=== PATIENT | male | born 1990 | race Caucasian/White ===

== ENCOUNTER 2022-03-22 17:08 | Emergency (ER) | payer SELFPAY ==
[~2022-03-22] VITALS: Ht 182.9 cm; Wt 106.0 kg
[2022-03-22] MEDS ORDERED: SODIUM CHLORIDE 0.9% 1,000 ML IV ONE (18:00)
[2022-03-22] MEDS ORDERED: LORAZEPAM 2MG/ML CPJ IV ONE ×2 (18:30→19:45)
[2022-03-22 18:51] LABS: BASOPHILS % 0.3 % (0.0-2.0); EOSINOPHILS % 0.1 % (0.0-5.0); HEMATOCRIT. 43.7 % (42.0-52.0); HEMOGLOBIN. 14.9 g/dL (14.0-18.0); LYMPHOCYTES % 8.9 % (20.0-50.0); MEAN CORPUSCULAR HEMOGLOBIN 29.8 pg (28.0-32.0); MEAN CORPUSCULAR VOLUME 87.4 fL (80.0-94.0); MONOCYTES % 4.3 % (2.0-8.0); NEUTROPHILS % 86.4 % (40.0-76.0); PLATELET 286 x1000/uL (130-400)
[2022-03-22 18:51] LABS: *AMPHETAMINES SCREEN URINE NEGATIVE (NEGATIVE); *BARBITURATES SCREEN URINE NEGATIVE (NEGATIVE); *BENZODIAZEPINES SCREEN URINE NEGATIVE (NEGATIVE); *COCAINE SCREEN URINE NEGATIVE (NEGATIVE); CANNABINOID URINE SCREEN NEGATIVE (NEGATIVE); METHADONE URINE SCREEN NEGATIVE (NEGATIVE); OPIATES URINE SCREEN NEGATIVE (NEGATIVE); PHENCYCLIDINE URINE SCREEN NEGATIVE (NEGATIVE)
[2022-03-22 19:02] LABS: CHLORIDE 106 mEq/L (98-107)
[2022-03-22 19:12] LABS: ETHANOL BLOOD < 10 mg/dL
[2022-03-22] MEDS ORDERED: ACETAMINOPHEN 325MG TABLET PO ONE (19:45)
[2022-03-22 20:30] VITALS: BP 137/90
[2022-03-22] MEDS ORDERED: IBUP-2029 MT (20:32)
[2022-03-22] MEDS ORDERED: HYDR-3782 MT (20:32)
== END 2022-03-22 21:00 | disposition home or self-care (01) ==
LOC: ER 17:08
DX: F15.10 Other stimulant abuse, uncomplicated (principal); R00.0 Tachycardia, unspecified; R00.2 Palpitations; I10 Essential (primary) hypertension; F17.290 Nicotine dependence, other tobacco product, uncomplicated; F12.10 Cannabis abuse, uncomplicated
CPT/HCPCS: 36415; 70450; 71045; 80053; 80305; 80307; 80320; 80329; 83690; 83880; 84484; 85025; 93005; 96361; 96374; 96376; 99285; J2060; J7030; G0480

== ENCOUNTER 2023-07-19 15:52 | Emergency (ER) | payer SELFPAY ==
[~2023-07-19] VITALS: Ht 172.7 cm; Wt 99.0 kg
[~2023-07-19 15:52] MED LIST: HYDR-3782 MT; IBUP-2029 MT
[2023-07-19 15:55] VITALS: BP 141/91; PULSE 97; RESP 16; TEMP 98.3; O2SAT 98
== END 2023-07-19 17:22 | disposition left against medical advice (07) ==
LOC: ER 15:52
DX: Z53.21 Procedure and treatment not carried out due to patient leaving prior to being seen by health care provider (principal)
CPT/HCPCS: 99281; 99283